=== PATIENT | female | born 1960 | race African-American/Black ===

== ENCOUNTER 2016-07-05 11:17 | Emergency (ER) | payer OTHER ==
[~2016-07-05] VITALS: Ht 172.7 cm; Wt 71.7 kg
[~2016-07-05 11:17] MED LIST: DICLOFENAC SODI75 M2 PO; IBUPROFEN800 M1 PO; ZANTAC300 MG PO; ZOFRAN ODT4 M1 SL
--- NOTE | 2016-07-05 12:10 | ED GENERAL ADULT ---
History of Present Illness General Chief Complaint: Abdominal Pain/Flank Pain Stated Complaint: ABD PAIN KIDNEY STONES Source: patient Exam Limitations: no limitations Vital Signs & Intake/Output Vital Signs & Intake/Output Vital Signs Date Time Temp Pulse Resp B/P Pulse O2 O2 Flow FiO2 Ox Delivery Rate 07/05 1457 97.0 64 15 144/72 100 Room Air Room Air ED Intake and Output 07/06 0000 02 1200 Intake Total 1000 Output Total 1 Balance 999 Intake, IV 1000 Output, Urine 1 Patient 158 lb Weight Allergies Coded Allergies: shrimp (Severe, HIVES, TONGUE SWELLED ONCE 04/19/16) adhesive tape (Intermediate, BLISTERS 05/29/16) Reconcile Medications Ibuprofen 800 MG TABLET 1 TAB PO TID PRN PAIN Ondansetron (Zofran Odt) 4 MG TAB.RAPDIS 1 TAB SL TID PRN NAUSEA Triage Note: PT TO ED WITH C/O BILATERAL LOWER ABD PAIN, HX KIDNEY STONES, SAW PMD AND ORDERED XRAY AND US, BUT NOT DONE YET. PT HAD LITHOTRIPSY LAST MONTH "HE DOESN'T THINK I PASSED IT". UROLOGIST: HECTOR. Triage Nurses Notes Reviewed? yes Onset: Abrupt Duration: day(s): Timing: recent history Severity: moderate HPI: 07/05/16 2:19 p.m. 55-year-old female presents to the emergency department complaining of left flank pain. The patient states she has a history of renal colic. She was actually sent for an ultrasound and plain film by Dr. Pinto yesterday. Intermittent left-sided flank pain that radiates to the left lower quadrant for 48 hours. no vomiting fever or other complaints. Past medical history kidney stones. The onset of the symptoms were abrupt. The duration was 48 hours. The severity with significant, as her symptoms required her to come to the emergency department for care. She has no associated nausea vomiting or fever. no hematuria. Past History Travel History Traveled to [place] past 21 day No Medical History Any Pertinent Medical History? see below for history Neurological: NONE EENT: NONE Cardiovascular: NONE Respiratory: NONE Gastrointestinal: NONE Hepatic: NONE Renal: KIDNEY STONES-LITHOTRIPSY Musculoskeletal: NONE Psychiatric: NONE Endocrine: NONE Blood Disorders: NONE Cancer(s): NONE GRANITE POLISHER/Reproductive: NONE Surgical History Surgical History: non-contributory Psychosocial History What is your primary language Mohawk Tobacco Use: Never used ETOH Use: denies use Illicit Drug Use: denies illicit drug use Family History Hx Contributory? No Review of Systems Review of Systems Constitutional: Denies: fever. EENTM: Denies: visual changes. Respiratory: Denies: short of breath. Cardiovascular: Denies: chest pain. GI: Reports: abdominal pain. Denies: vomiting. Genitourinary: Reports: no symptoms. Musculoskeletal: Reports: no symptoms. Skin: Reports: no symptoms. Neurological/Psychological: Reports: no symptoms. Hematologic/Endocrine: Reports: no symptoms. Immunologic/Allergic: Reports: no symptoms. Physical Exam Physical Exam General Appearance: alert, awake, anxious, mild distress Head: atraumatic, normal appearance Eyes: Bilateral: normal appearance, PERRL, EOMI. Ears, Nose, Throat: normal pharynx, normal ENT inspection Neck: normal inspection, supple Respiratory: normal breath sounds, chest non-tender, no respiratory distress Cardiovascular: regular rate/rhythm Peripheral Pulses: 4+ radial (R), 4+ radial (L) Gastrointestinal: soft, non-tender Back: normal range of motion Extremities: normal inspection, normal range of motion Neurologic/Psych: no motor/sensory deficits, awake, alert, oriented x 3 Skin: intact, normal color, warm/dry Core Measures ACS in differential dx? No CVA/TIA Diagnosis: No Severe Sepsis Present: No Septic Shock Present: No Progress Differential Diagnoses I considered the following diagnoses in my evaluation of the patient: [ renal colic, UTI, pyelonephritis, diverticulitis] Plan of Care: Orders Procedure Date/time Status CULTURE,URINE 07/05 1339 Active URINALYSIS 07/05 1339 Complete COMPREHENSIVE METABOLIC PANEL 07/05 1339 Complete CBC WITHOUT DIFFERENTIAL 07/05 1339 Complete Laboratory Tests 07/05/16 1356: Anion Gap 8, Estimated GFR > 60, BUN/Creatinine Ratio 16.3, Glucose 95, Calcium 9.9, Total Bilirubin 0.4, AST 25, ALT 38, Alkaline Phosphatase 112, Total Protein 8.4 H, Albumin 4.7, Globulin 3.7, Albumin/Globulin Ratio 1.3, CBC w Diff NO MAN DIFF REQ, RBC 4.50, MCV 87.1, MCH 29.3, RDW 12.5, MPV 9.1, Gran % 47.4, Lymphocytes % 42.3, Monocytes % 9.4 H, Eosinophils % 0.6, Basophils % 0.3 , Absolute Granulocytes 3.1, Absolute Lymphocytes 2.7, Absolute Monocytes 0.6, Absolute Eosinophils 0, Absolute Basophils 0, PUBS MCHC 33.7 07/05/16 1350: Urinalysis LIGHT H, Urine Color YEL, Urine Clarity CLEAR, Urine pH 6.0, Ur Specific [place] >= 1.030, Urine Protein NEG, Urine Ketones NEG, Urine Nitrite NEG, Urine Bilirubin NEG, Urine Urobilinogen 0.2, Ur Leukocyte Esterase NEG, Ur Microscopic SEDIMENT EXAMINED, Urine RBC RARE, Urine WBC RARE, Ur Epithelial Cells RARE, Urine Mucus RARE, Urine Hemoglobin TRACE-LYSED, Urine Glucose NEG Microbiology 07/05 135 URINE ROUT: Urine Culture - RES Initial ED EKG: none Departure Departure Disposition: HOME OR SELF CARE Condition: Stable Clinical Impression Primary Impression: Flank pain Referrals: KIRSTY SIMPSON (PCP/Family) Departure Forms: Customer Survey General Discharge Information Comments KUB plain film x-ray from yesterday reviewed FINDINGS: There is a 4 mm calcification projecting over the lower pole of the right kidney suggestive of a stone. This is similar to previous exams. No left renal stone is seen by KUB. There is a solitary left pelvic calcification that is stable and probably represents a calcified phlebolith. Bowel gas pattern is normal. There is curvature of the lower lumbar spine to the right. IMPRESSION: Stable appearance to the 4 mm right lower pole renal stone. DICTATED BY: SB GRIER MD DATE/TIME DICTATED:07/05/16614 UNDERWRITING MANAGER:ALLI DATE/TIME TRANSCRIBED:07/05/16614 CONFIDENTIAL, DO NOT COPY WITHOUT APPROPRIATE AUTHORIZATION. <Electronically signed in Other Vendor System> SIGNED BY: SB GRIER MD 1419 ULTRASOUND REPORT FROM YESTERDAY REVIEWED IMPRESSION: Single nonobstructing bilateral renal calculi measuring up to 0.6 cm on the right and 0.2 cm on the left. DICTATED BY: QUENTIN MARTINEZ MD DATE/TIME DICTATED:07/05/16755 UNDERWRITING MANAGER:ALLI DATE/TIME TRANSCRIBED:07/05/16755 CONFIDENTIAL, DO NOT COPY WITHOUT APPROPRIATE AUTHORIZATION. <Electronically signed in Other Vendor System> SIGNED BY: QUENTIN MARTINEZ MD 07/05/16 0819 Brenda was very comfortable in the emergency department. Her pain was improved with, nonsteroidal analgesics. I spoke with Dr. Pinto who will see the patient on Friday. He will call her tomorrow to facilitate the follow-up. she will return to the emergency department if fever or worse. labs today were unremarkable. Critical Care Note Critical Care Note Critical Care Time: non-applicable
[2016-07-05 14:14] LABS: ABSOLUTE BASOPHIL COUNT 0 /CUMM (0.0-0.2); ABSOLUTE EOSINOPHIL COUNT 0 /CUMM (0.0-0.7); ABSOLUTE GRANULOCYTE CT 3.1 /CUMM (1.4-6.5); ABSOLUTE LYMPH COUNT 2.7 /CUMM (1.2-3.4); ABSOLUTE MONOCYTE COUNT 0.6 /CUMM (0.10-0.60); BASOPHIL % 0.3 % (0.0-2.0); EOSINOPHIL % 0.6 % (0-5); GRANULOCYTE % 47.4 % (42.2-75.2); HEMATOCRIT 39.2 % (37-47); MEAN CORPUSCULAR HGB 29.3 PG (27.0-31.0); MEAN CORPUSCULAR HGB CONC 33.7 G/DL (33.0-37.0); MEAN CORPUSCULAR VOLUME 87.1 FL (81.0-99.0); MEAN PLATELET VOLUME 9.1 FL (7.4-10.4); PLATELET COUNT 276 /CUMM (130-400); RBC DISTRIBUTION WIDTH 12.5 % (11.5-14.5); WHITE BLOOD CELL COUNT 6.4 /CUMM (4.8-10.8)
[2016-07-05 14:57] VITALS: BP 144/72
== END 2016-07-05 15:10 ==
LOC: ERH 11:17
PROVIDERS: Emergency Medicine
DX: R10.9 Unspecified abdominal pain (principal)
CPT/HCPCS: 81001; 87086; 96374; J1885

== ENCOUNTER → 2016-07-09 | Day surgery (SDC) | payer OTHER ==
[2007-09-08 11:43] VITALS: BP 119/77
--- NOTE | 2016-07-09 18:28 | Operative Report ---
Operative/Inv Procedure Report Surgery Date: 07/09/16 Name of Procedure: RIGHT UPJ/URETER ESWL/FLUOROSCOPY Pre-Operative Diagnosis: BILAT. RENAL COLIC; 5MM STONE AT UPJ-NO HYDRO. Post-Operative Diagnosis: SAME Estimated Blood Loss: none Surgeon/Supervising Broker: DEVONTE YOUNG MD Anesthesia: moderate sedation Specimens: NONE Complications: NONE Operative/Procedure Note Note: The patient was taken to the operating room and placed on the ESWL table in supine position. With the patient awake, timeout was performed to cofirm correct identity, procedure, laterality, anesth., and other pertinent perla- operative information. The patient's RIGHT flank was placed over the table cut -out, overlying the dome of the shockwave generator. C-arm fluroscopy, as well as renal US, was used to locate the stone, and evaluate the RIGHT kidney. The stone was clearly visible on fluoroscopy at the distal right ureter, measuring approximately 6 mm stone burden. Renal US confirmed NO hydronephrosis, NO additional stone, and no tumor. After adequate anesthesia, the right UPJ/ proximal ureter stone's position was optimized for Shockwave lithotrypsy using fluoroscopy in AP and oblique views. The E.S.W.L. was initiated at low power levels x 200 shocks. After noting the patient's tolerance to the shockwaves, the shock wave power level was quickly maximized. Toward the end of the procedure, the composition of the stone had changed significantly indicating the pulverization of the ureter stone. A total of 3000 shockwaves were delivered to the stone in order to achieve adequate lithotrypsy. The patient tolerated both the procedure well, was awakened, and taken to recovery in satisfactory condition via stretcher. The pt will be dischared home with pain meds, diet orders, and intructions to catch fragments with straining the urine. The patient is to have follow-up renal ultrasound and KUB in 1-2 weeks, prior to follow-up visit in my office. Discharge Disposition: PACU CC: DEVONTE YOUNG MD
== END ==
LOC: STS 03:21
DX: N20.1 Calculus of ureter (principal); Z87.442 Personal history of urinary calculi
CPT/HCPCS: J2250; J2405

== ENCOUNTER 2016-09-09 01:44 | Emergency (ER) | payer OTHER ==
[~2016-09-09] VITALS: Ht 172.7 cm; Wt 71.7 kg
--- NOTE | 2016-09-09 01:52 | ED GI/GU/ABDOMINAL COMPLAINT ---
History of Present Illness General Chief Complaint: Abdominal Pain/Flank Pain Stated Complaint: ?KIDNEY STONE Source: patient Exam Limitations: no limitations Vital Signs & Intake/Output Vital Signs & Intake/Output Vital Signs Date Time Temp Pulse Resp B/P Pulse O2 O2 Flow FiO2 Ox Delivery Rate 09/09 0401 97.3 76 18 132/79 97 Room Air 09/09 0211 Room Air 09/09 0150 97.6 75 18 137/86 97 Allergies Coded Allergies: shrimp (Severe, HIVES, TONGUE SWELLED ONCE 04/19/16) adhesive tape (Intermediate, BLISTERS 05/29/16) Reconcile Medications Ibuprofen 800 MG TABLET 1 TAB PO TID PRN PAIN Ondansetron (Zofran Odt) 4 MG TAB.RAPDIS 1 TAB SL TID PRN NAUSEA Triage Nurses Notes Reviewed? yes ? n Is pt currently ? No Onset: Gradual Duration: hour(s): Timing: recent history Quality/Severity: stabbing Location: right flank Radiation: RLQ Activities at Onset: none Modifying Factors: Worsens With: palpation, urinating. Associated Symptoms: abdominal pain, dysuria HPI: 56-year-old woman history of kidney stones presents with right lower quadrant and right flank pain that started yesterday afternoon. She notes mild nausea, increased urination along with dysuria. She has no fever chills chest pain shortness of breath. She notes this is consistent with her prior episode of kidney stones which was in July of this year. She is otherwise well and has no other concerns. Past History Travel History Traveled to [place] past 21 day No Medical History Any Pertinent Medical History? see below for history Neurological: NONE EENT: NONE Cardiovascular: NONE Respiratory: NONE Gastrointestinal: NONE Hepatic: NONE Renal: KIDNEY STONES-LITHOTRIPSY Musculoskeletal: NONE Psychiatric: NONE Endocrine: NONE Blood Disorders: NONE Cancer(s): NONE DIGITAL ARTIST/Reproductive: NONE Surgical History Surgical History: hysterectomy Psychosocial History What is your primary language Cuban Family History Hx Contributory? No Review of Systems Review of Systems Constitutional: Reports: no symptoms. EENTM: Reports: no symptoms. Respiratory: Reports: no symptoms. Cardiovascular: Reports: no symptoms. GI: Reports: no symptoms. Genitourinary: Reports: no symptoms. Musculoskeletal: Reports: no symptoms. Skin: Reports: no symptoms. Neurological/Psychological: Reports: no symptoms. Hematologic/Endocrine: Reports: no symptoms. Immunologic/Allergic: Reports: no symptoms. All Other Systems: Reviewed and Negative Physical Exam Physical Exam General Appearance: well developed/nourished, mild distress Head: atraumatic, normal appearance Eyes: Bilateral: normal appearance. Ears, Nose, Throat, Mouth: hearing grossly normal Neck: normal inspection, supple, full range of motion Respiratory: normal breath sounds, chest non-tender, no respiratory distress, quiet respiration, lungs clear Cardiovascular: regular rate/rhythm Gastrointestinal: normal bowel sounds, soft, mild rlq tenderness to palpation Back: normal inspection, normal range of motion Extremities: normal range of motion Neurologic/Psych: no motor/sensory deficits, awake, alert, oriented x 3 Skin: intact, normal color, warm/dry Core Measures ACS in differential dx? No Severe Sepsis Present: No Septic Shock Present: No Progress Differential Diagnosis: appendicitis, kidney stone, UTI/pyelo, vs other Plan of Care: Orders Procedure Date/time Status URINALYSIS 09/09 150 Complete TROPONIN LEVEL 09/09 150 Complete LIPASE 09/09 150 Complete HEPATIC FUNCTION PANEL 09/09 150 Complete CBC WITHOUT DIFFERENTIAL 09/09 150 Complete BASIC METABOLIC PANEL 09/09 150 Complete AMYLASE 09/09 150 Complete EKG 09/09 150 Active Laboratory Tests 09/09/16 0223: Anion Gap 12, Estimated GFR > 60, BUN/Creatinine Ratio 16.3, Glucose 114 H, Calcium 9.9, Total Bilirubin 0.4, Direct Bilirubin 0.2, AST 28, ALT 37, Alkaline Phosphatase 92, Troponin I < 0.01, Total Protein 7.9, Albumin 4.3, Amylase 132 H, Lipase 128, CBC w Diff NO MAN DIFF REQ, RBC 4.18 L, MCV 87.0, MCH 29.4, RDW 12.8, MPV 9.0, Gran % 68.0, Lymphocytes % 25.1, Monocytes % 6.1, Eosinophils % 0.3, Basophils % 0.5, Absolute Granulocytes 4.9, Absolute Lymphocytes 1.8, Absolute Monocytes 0.4, Absolute Eosinophils 0, Absolute Basophils 0, PUBS MCHC 33.8 09/09/16 0155: Urinalysis LIGHT H, Urine Color STRAW, Urine Clarity HAZY H, Urine pH 6.0, Ur Specific [place] >= 1.030, Urine Protein 30 H, Urine Ketones NEG, Urine Nitrite NEG, Urine Bilirubin NEG, Urine Urobilinogen 0.2, Ur Leukocyte Esterase NEG, Ur Microscopic SEDIMENT EXAMINED, Urine RBC 1-3, Urine WBC RARE, Ur Epithelial Cells RARE, Urine Mucus RARE, Urine Hemoglobin MOD H, Urine Glucose NEG Diagnostic Imaging: Viewed by Me: Radiology Read. Discussed w/RAD: Radiology Read. Radiology Impression: abd/pelvic ct... r 4mm uvj stone... full report below. Initial ED EKG: normal axis, normal intervals, normal p-waves, normal QRS complex, normal sinus rhythm Comments: PATIENT: MI BLAKELY PRESENT AGE: 56 PATIENT ACCOUNT NO: [id number] : 62 LOCATION: [facility] ORDERING PHYSICIAN: TANA MCKEON MD SERVICE DATE: 09/09/16 EXAM TYPE: CAT - CT ABD & PELVIS W/O IV CONTRAS EXAMINATION: CT ABDOMEN AND PELVIS WITHOUT CONTRAST CLINICAL INFORMATION: Right flank pain. COMPARISON: None. TECHNIQUE: Contiguous axial thin section helical images of the abdomen and pelvis were performed without oral or IV contrast. The data set was reformatted in the coronal and sagittal planes and reviewed on an independent workstation. DLP: 269 mGy-cm. FINDINGS: There is dependent bibasilar atelectasis. The visualized lung bases are otherwise clear. The visualized portions of the heart are unremarkable. The liver is of normal size and attenuation without focal lesions nor intrahepatic biliary ductal dilation. A normal gallbladder is identified. There is no wall thickening or discernible pericholecystic fluid. The spleen, pancreas, adrenal glands are unremarkable. Both kidneys are of normal size and attenuation. There is right grade 2 hydroureteronephrosis secondary to an obstructive 4 mm right UVJ calculus. There is also a nonobstructive 3 mm calculus within the lower pole of the right kidney. There is no left-sided hydronephrosis or nephrolithiasis. There is no abdominal free fluid. There is neither mesenteric nor retroperitoneal lymphadenopathy. Normal unopacified loops of small and large bowel are identified. A normal appendix is identified. There is no pelvic free fluid. The urinary bladder is unremarkable. There is neither pelvic nor inguinal lymphadenopathy. Bone windows: Neither sclerotic nor lytic bone lesions are identified. IMPRESSION: Right grade 2 hydroureteronephrosis secondary to an obstructive 4 mm right UVJ calculus. DICTATED BY: GUERA BILLINGSLEY MD DATE/TIME DICTATED:09/09/16326 CENTER LINE CUTTER OPERATOR:ALLI DATE/TIME TRANSCRIBED:09/09/16326 CONFIDENTIAL, DO NOT COPY WITHOUT APPROPRIATE AUTHORIZATION. <Electronically signed in Other Vendor System> SIGNED BY: GUERA BILLINGSLEY MD 09/09/16334 Departure Departure Disposition: HOME OR SELF CARE Condition: Stable Clinical Impression Primary Impression: Renal colic on right side Referrals: PRAVIN COLBY,KIRSTY CARREON (PCP/Family) Departure Forms: Customer Survey General Discharge Information Comments 09/09/16, 4:00am... pt feeling better, resting comfortably, urinating well... she has percocet and ibuprofen at home... pt safe for discharge with close follow up with dr. pillai.
[2016-09-09 02:32] LABS: ABSOLUTE BASOPHIL COUNT 0 /CUMM (0.0-0.2); ABSOLUTE EOSINOPHIL COUNT 0 /CUMM (0.0-0.7); ABSOLUTE GRANULOCYTE CT 4.9 /CUMM (1.4-6.5); ABSOLUTE LYMPH COUNT 1.8 /CUMM (1.2-3.4); ABSOLUTE MONOCYTE COUNT 0.4 /CUMM (0.10-0.60); BASOPHIL % 0.5 % (0.0-2.0); EOSINOPHIL % 0.3 % (0-5); HEMATOCRIT 36.4 % (37-47); MEAN CORPUSCULAR HGB 29.4 PG (27.0-31.0); MEAN CORPUSCULAR HGB CONC 33.8 G/DL (33.0-37.0); PLATELET COUNT 239 /CUMM (130-400); RBC DISTRIBUTION WIDTH 12.8 % (11.5-14.5); RED BLOOD CELL CT 4.18 /CUMM (4.20-5.40); WHITE BLOOD CELL COUNT 7.2 /CUMM (4.8-10.8)
--- NOTE | 2016-09-09 03:35 | CT SCAN REPORT ---
EXAMINATION: CT ABDOMEN AND PELVIS WITHOUT CONTRAST CLINICAL INFORMATION: Right flank pain. COMPARISON: None. TECHNIQUE: Contiguous axial thin section helical images of the abdomen and pelvis were performed without oral or IV contrast. The data set was reformatted in the coronal and sagittal planes and reviewed on an independent workstation. DLP: 269 mGy-cm. FINDINGS: There is dependent bibasilar atelectasis. The visualized lung bases are otherwise clear. The visualized portions of the heart are unremarkable. The liver is of normal size and attenuation without focal lesions nor intrahepatic biliary ductal dilation. A normal gallbladder is identified. There is no wall thickening or discernible pericholecystic fluid. The spleen, pancreas, adrenal glands are unremarkable. Both kidneys are of normal size and attenuation. There is right grade 2 hydroureteronephrosis secondary to an obstructive 4 mm right UVJ calculus. There is also a nonobstructive 3 mm calculus within the lower pole of the right kidney. There is no left-sided hydronephrosis or nephrolithiasis. There is no abdominal free fluid. There is neither mesenteric nor retroperitoneal lymphadenopathy. Normal unopacified loops of small and large bowel are identified. A normal appendix is identified. There is no pelvic free fluid. The urinary bladder is unremarkable. There is neither pelvic nor inguinal lymphadenopathy. Bone windows: Neither sclerotic nor lytic bone lesions are identified. IMPRESSION: Right grade 2 hydroureteronephrosis secondary to an obstructive 4 mm right UVJ calculus.
[2016-09-09 04:01] VITALS: BP 132/79
== END 2016-09-09 04:09 ==
LOC: ERH 01:44
PROVIDERS: Pediatrics
DX: N23 Unspecified renal colic (principal)
CPT/HCPCS: 74176; 81001; 93005; 93010; 96374; J1885

== ENCOUNTER 2018-02-24 10:04 | Emergency (ER) | payer OTHER ==
[~2018-02-24] VITALS: Ht 172.7 cm; Wt 72.1 kg
[~2018-02-24 10:04] MED LIST changes: +BENTYL10 M1 PO; +LEVSIN0.125 M1 PO; +NYSTATIN100000 UNI PO; +OMEPRAZOLE40 M1 PO
[2018-02-24] MEDS ORDERED: TAMSULOSIN HCL0.4 M1 PO (12:03)
--- NOTE | 2018-02-24 12:07 | ED GENERAL ADULT ---
History of Present Illness General Chief Complaint: General Adult Stated Complaint: "I DONT FEEL WELL", MULTIPLE COMPLAINTS Source: patient Exam Limitations: no limitations Vital Signs & Intake/Output Vital Signs & Intake/Output Vital Signs Date Time Temp Pulse Resp B/P B/P Pulse O2 O2 Flow FiO2 Mean Ox Delivery Rate 02/24 1746 68 18 151/69 97 Room Air 02/24 1623 98.1 72 18 150/70 96 Room Air 02/24 1348 98.5 77 18 157/81 98 Room Air Room Air 02/24 1249 99 Room Air 02/24 1011 98.4 114 20 166/96 99 Room Air Allergies Coded Allergies: shrimp (Severe, HIVES, TONGUE SWELLED ONCE 08/11/17) adhesive tape (Intermediate, BLISTERS 08/11/17) Reconcile Medications Tamsulosin HCl 0.4 MG CAP.ER.24H 1 CAP PO QPM KIDNEY STONES (Reported) Triage Note: PT STATES HX OF KIDNEY STONES AND SHE IS HAVING PAIN IN HER ABDOMEN AND RADIATING TO RIGHT FLANK. PT STATES LAST NIGHT SHE HAD A LOT OF GAS PAIN AND TODAY SHE IS FEELING ANXIOUS. PT DENIES URINARY S&S. STATES SHE IS TAKING FLOMAX Triage Nurses Notes Reviewed? yes HPI: 57 yo female with a history of kidney stones, h. pylori, and gastritis presents today for generalized abdominal pain and chest palpitations for one day. Patient states she started having abdominal pain around midnight and kept waking up every two hours and describe it has sharp pain throughout her abdomen. She thinks it is a kidney stone as she was told she had a stone a few weeks ago by Dr. Pinto and was offered to treat it right there but she opted to let it pass and was given tamusolin. She admits she had a cheseburger last night for dinner and admits to nausea and feeling lightheaded. She denies any vomiting, diarrhea, headache, vision changes, cough, fever, or chills. Her last bowel movement was yesterday and it was normal and she denies any changes in urination. Patient also stated that she had some left side chest pain that started this morning and felt like her heart was racing like anxiety. It only lasted for a few minutes and she denies it ever happening before. Past History Travel History Traveled to [place] past 21 day No Medical History Any Pertinent Medical History? see below for history Neurological: NONE EENT: NONE Cardiovascular: NONE Respiratory: NONE Gastrointestinal: GERD, HPYLORI Hepatic: NONE Renal: KIDNEY STONES-LITHOTRIPSY Musculoskeletal: NONE Psychiatric: NONE Endocrine: NONE Blood Disorders: NONE Cancer(s): NONE OTR DRIVER/Reproductive: NONE Surgical History Surgical History: hysterectomy Psychosocial History What is your primary language Khmer Tobacco Use: Never used ETOH Use: occasional use Illicit Drug Use: denies illicit drug use Family History Hx Contributory? No Review of Systems Review of Systems Constitutional: Reports: weakness. EENTM: Reports: no symptoms, see HPI. Respiratory: Reports: no symptoms, see HPI. Cardiovascular: Reports: see HPI, chest pain. GI: Reports: see HPI, bloating, nausea. Genitourinary: Reports: no symptoms, see HPI. Musculoskeletal: Reports: no symptoms, see HPI. Skin: Reports: no symptoms, see HPI. Neurological/Psychological: Reports: no symptoms, see HPI. Hematologic/Endocrine: Reports: no symptoms, see HPI. Immunologic/Allergic: Reports: no symptoms, see HPI. All Other Systems: Reviewed and Negative Physical Exam Physical Exam General Appearance: well developed/nourished, no apparent distress, alert, awake Head: atraumatic, normal appearance Eyes: Bilateral: normal appearance, PERRL, EOMI. Ears, Nose, Throat: normal pharynx, normal ENT inspection, hearing grossly normal Neck: normal inspection, supple, full range of motion Respiratory: normal breath sounds, chest non-tender, no respiratory distress Cardiovascular: regular rate/rhythm, normal peripheral pulses Gastrointestinal: normal bowel sounds, soft, non-tender, no organomegaly Back: normal inspection, normal range of motion Extremities: normal inspection, normal capillary refill, normal range of motion, no edema Neurologic/Psych: no motor/sensory deficits, awake, alert, oriented x 3, normal gait, normal mood/affect Skin: intact, normal color, warm/dry Core Measures ACS in differential dx? No CVA/TIA Diagnosis: No Sepsis Present: No Sepsis Focused Exam Completed? No Progress Differential Diagnoses I considered the following diagnoses in my evaluation of the patient: Gas pain, biliary colic, gastritis, NH, cardiac arrhythmia, Plan of Care: Orders Procedure Date/time Status TROPONIN LEVEL 02/24 1545 Complete EKG 02/24 1545 Active TROPONIN LEVEL 02/24 1153 Complete LIPASE 02/24 1153 Complete COMPREHENSIVE METABOLIC PANEL 02/24 1153 Complete CBC WITHOUT DIFFERENTIAL 02/24 1153 Complete EKG 02/24 1153 Active URINALYSIS 02/24 1014 Complete Laboratory Tests 02/24/18 1553: Troponin I < 0.01 02/24/18 1238: Anion Gap 10, Estimated GFR > 60, BUN/Creatinine Ratio 17.1, Glucose 89, Calcium 9.8, Total Bilirubin 0.3, AST 28, ALT 35, Alkaline Phosphatase 110, Troponin I < 0.01, Total Protein 8.0, Albumin 4.9, Globulin 3.1, Albumin/Globulin Ratio 1.6, Lipase 130, CBC w Diff NO MAN DIFF REQ, RBC 4.45, MCV 87.9, MCH 30.3, MCHC 34.5, RDW 12.6, MPV 9.4, Gran % 69.5, Lymphocytes % 24.0, Monocytes % 6.2, Eosinophils % 0, Basophils % 0.3, Absolute Granulocytes 4.1, Absolute Lymphocytes 1.4, Absolute Monocytes 0.4, Absolute Eosinophils 0, Absolute Basophils 0 02/24/18 1008: Urine Color YEL, Urine Clarity CLEAR, Urine pH 5.5, Ur Specific [place] >= 1.030 , Urine Protein NEG, Urine Ketones NEG, Urine Nitrite NEG, Urine Bilirubin NEG, Urine Urobilinogen 0.2, Ur Leukocyte Esterase NEG, Ur Microscopic SEDIMENT EXAMINED, Urine RBC 1-3, Urine WBC 1-3 H, Ur Epithelial Cells FEW, Urine Bacteria FEW H, Urine Hemoglobin TRACE-INTACT, Urine Glucose NEG Diagnostic Imaging: Viewed by Me: Radiology Read, CT Scan. Discussed w/RAD: Radiology Read, CT Scan. Radiology Impression: PATIENT: MI BLAKELY PRESENT AGE: 57 PATIENT ACCOUNT NO: [id number] : 62 LOCATION: [facility] ORDERING PHYSICIAN: Migue COLBY SERVICE DATE: 02/24/18 EXAM TYPE : RAD - XRY-CHEST XRAY, TWO VIEWS EXAMINATION: XR CHEST CLINICAL INFORMATION: Chest pain. COMPARISON: Chest done on 08/11/2017. TECHNIQUE: 2 views of the chest were obtained. FINDINGS: The cardiomediastinal silhouette is mildly enlarged, unchanged. Both lungs are clear. There is no pleural effusion or pneumothorax present. The visualized upper abdomen is unremarkable. Mild multilevel degenerative spondylosis is seen in the spine, unchanged. IMPRESSION: Mildly enlarged cardiomediastinal silhouette, otherwise unremarkable. DICTATED BY: Dorothea Licea MD DATE/TIME DICTATED:02/24/181245 ELECTROLOG OPERATOR: ALLI DATE/TIME TRANSCRIBED:02/24/181245 CONFIDENTIAL, DO NOT COPY WITHOUT APPROPRIATE AUTHORIZATION. <Electronically signed in Other Vendor System> SIGNED BY: Dorothea Licea MD 02/24/18 1252 Initial ED EKG: normal sinus rhythm, rate (77) Repeat EKG: unchanged Departure Departure Disposition: HOME OR SELF CARE Condition: Stable Clinical Impression Primary Impression: Abdominal pain Secondary Impressions: Atypical chest pain Referrals: Coty RECINOS,Praveen COLBY,Mare Jones (PCP/Family) Additional Instructions: Follow-up with apprentice. Follow-up with primary care doctor. Return if any concerns worsening symptoms. Please go over all results of today's visit with your primary care doctor. Contact your primary care doctor to let them know you were here in the emergency room. There may be nonspecific findings which may not be related to your visit today here in the emergency room but may require further evaluation and chronic monitoring by your primary care doctor. If you had a laceration today the chance of foreign body always remains. You should follow-up with your primary care doctor for recheck in 3-5 days for a wound check. If you had an x-ray done there is a chance that a fracture could have been missed on initial read and you should follow-up with your primary care doctor for repeat x-rays if symptoms persist. If your blood pressure was elevated here in the emergency room please have rechecked by [facility] primary care doctor within the next 48. If you were prescribed a narcotic here in the emergency room or any type of controlled substances you're not allowed to drive while taking this medication or operate any type of heavy machinery. Narcotics can make you feel lightheaded dizziness nausea and can cause constipation. You may need to pecan picker a stool softener. Thank you for choosing [facility] emergency room. Please return to the emergency room immediately if you have any other concerns worsening of symptoms. Departure Forms: Customer Survey General Discharge Information Comments 02/24/2018 5:59:10 PM Patient clinically looks well. No apparent distress. She has been asymptomatic here in the emergency room. Heart score is low risk. She troponins negative. 2 unchanged EKGs. She has not been having any chest pain emergency room. She has not had any recurrent abdominal pain. At this time she is stable for follow -up with cardiology as outpatient and her primary care doctor per Critical Care Note Critical Care Note Critical Care Time: non-applicable
[2018-02-24 12:49] LABS: ABSOLUTE BASOPHIL COUNT 0 /CUMM (0.0-0.2); ABSOLUTE EOSINOPHIL COUNT 0 /CUMM (0.0-0.7); ABSOLUTE GRANULOCYTE CT 4.1 /CUMM (1.4-6.5); ABSOLUTE LYMPH COUNT 1.4 /CUMM (1.2-3.4); ABSOLUTE MONOCYTE COUNT 0.4 /CUMM (0.10-0.60); BASOPHIL % 0.3 % (0.0-2.0); EOSINOPHIL % 0 % (0-5); HEMATOCRIT 39.1 % (37-47); MEAN CORPUSCULAR HGB 30.3 PG (27.0-31.0); MEAN CORPUSCULAR HGB CONC 34.5 G/DL (33.0-37.0); MEAN CORPUSCULAR VOLUME 87.9 FL (81.0-99.0); MEAN PLATELET VOLUME 9.4 FL (7.4-10.4); PLATELET COUNT 267 /CUMM (130-400); RBC DISTRIBUTION WIDTH 12.6 % (11.5-14.5); RED BLOOD CELL CT 4.45 /CUMM (4.20-5.40); WHITE BLOOD CELL COUNT 5.9 /CUMM (4.8-10.8)
[2018-02-24 12:50] LABS: GRANULOCYTE % 69.5 % (42.2-75.2)
--- NOTE | 2018-02-24 12:52 | RADIOLOGY REPORT ---
EXAMINATION: XR CHEST CLINICAL INFORMATION: Chest pain. COMPARISON: Chest done on 08/11/2017. TECHNIQUE: 2 views of the chest were obtained. FINDINGS: The cardiomediastinal silhouette is mildly enlarged, unchanged. Both lungs are clear. There is no pleural effusion or pneumothorax present. The visualized upper abdomen is unremarkable. Mild multilevel degenerative spondylosis is seen in the spine, unchanged. IMPRESSION: Mildly enlarged cardiomediastinal silhouette, otherwise unremarkable.
--- NOTE | 2018-02-24 15:21 | CT SCAN REPORT ---
EXAMINATION: CT ABDOMEN AND PELVIS WITHOUT CONTRAST CLINICAL INFORMATION: Abdominal pain. Recent kidney stone. COMPARISON: CT abdomen 04/29/2017. Renal ultrasound 02/09/2018. Plain film Abdomen 02/09/2018. TECHNIQUE: Multidetector volumetric imaging was performed from the superior aspect of the liver through the pubic symphysis. Sagittal and coronal reformatted images were obtained on the technologist's workstation. DLP: 268.57 mGy-cm FINDINGS: LUNG BASES: The visualized lung bases are unremarkable. LIVER, GALLBLADDER, AND BILIARY TREE: The liver is normal in size, shape, and attenuation. No focal hepatic lesion or biliary ductal dilatation is present. The gallbladder is unremarkable with no evidence of radiopaque gallstones, gallbladder wall thickening, or obvious pericholecystic inflammatory changes. PANCREAS: Unremarkable. SPLEEN: Unremarkable. ADRENAL GLANDS: Unremarkable. KIDNEYS AND URETERS: There is a 5 mm stone lower pole the right kidney which is not causing obstruction. There is no stone in left kidney. There is no hydronephrosis of either kidney. No ureteral stone is present. Both kidneys are of normal size and contour and normal cortical thickness BLADDER: Unremarkable. GASTROINTESTINAL TRACT: There are scattered diverticula throughout the colon. There is no diverticulitis. There is no acute change of the bowel. No bowel obstruction. No bowel wall thickening or edema. There is a moderate volume of stool in the colon. The appendix is normal. The small bowel loops are unremarkable. ABDOMINAL WALL: No significant hernia is appreciated. LYMPH NODES: Normal. VASCULAR: There are scattered vascular wall calcifications of the aorta without aneurysm. PELVIC VISCERA: The uterus is absent. There is no adnexal abnormality. OSSEOUS STRUCTURES: Unremarkable. IMPRESSION: 1. No acute abnormality of the abdomen or pelvis. 2. Nonobstructive 5 mm stone lower pole right kidney. There is no ureteral calculi and there is no hydronephrosis. 3. Diverticulosis of the colon. There is no acute change of the bowel.
[2018-02-24 17:46] VITALS: BP 151/69
== END 2018-02-24 18:10 ==
LOC: ERH 10:04
PROVIDERS: Physician Assistant Medical
DX: R10.84 Generalized abdominal pain (principal); R07.89 Other chest pain; R00.2 Palpitations
CPT/HCPCS: 71046; 74176; 81001; 93005; 93010